=== PATIENT | female | born 1930 ===

== ENCOUNTER → 2018-12-08 | Outpatient (CLI) | payer OTHER | LOC: LAB SHORT 07:47 → PLD 07:47 | DX: D48.5 Neoplasm of uncertain behavior of skin (principal); L82.1 Other seborrheic keratosis | CPT/HCPCS: 88305 ==

== ENCOUNTER 2021-06-09 00:27 | Day surgery (SDC) | payer OTHER | END 2021-06-09 23:21 | disposition home or self-care (01) | LOC: WOUND 00:27 | DX: L89.313 Pressure ulcer of right buttock, stage 3 (principal); L89.322 Pressure ulcer of left buttock, stage 2; G90.09 Other idiopathic peripheral autonomic neuropathy; Z87.891 Personal history of nicotine dependence | CPT/HCPCS: A9270; G0463 ==

== ENCOUNTER 2021-06-16 03:06 | Day surgery (SDC) | payer OTHER | END 2021-06-16 23:25 | disposition home or self-care (01) | LOC: WOUND 03:06 | DX: L89.312 Pressure ulcer of right buttock, stage 2 (principal); L89.322 Pressure ulcer of left buttock, stage 2 | CPT/HCPCS: G0463 ==

== ENCOUNTER 2021-06-23 01:01 | Day surgery (SDC) | payer OTHER | END 2021-06-23 23:00 | disposition home or self-care (01) | LOC: WOUND 01:01 | DX: L89.313 Pressure ulcer of right buttock, stage 3 (principal); L89.322 Pressure ulcer of left buttock, stage 2; G90.09 Other idiopathic peripheral autonomic neuropathy | CPT/HCPCS: A9270; G0463 ==

== ENCOUNTER 2021-07-07 00:25 | Day surgery (SDC) | payer OTHER | END 2021-07-07 23:00 | disposition home or self-care (01) | LOC: WOUND 00:25 | DX: L89.313 Pressure ulcer of right buttock, stage 3 (principal); L89.322 Pressure ulcer of left buttock, stage 2; G90.09 Other idiopathic peripheral autonomic neuropathy | CPT/HCPCS: A9270; G0463 ==

== ENCOUNTER 2021-07-21 01:11 | Day surgery (SDC) | payer OTHER | END 2021-07-21 23:29 | disposition home or self-care (01) | LOC: WOUND 01:11 | DX: L89.313 Pressure ulcer of right buttock, stage 3 (principal); G90.09 Other idiopathic peripheral autonomic neuropathy | CPT/HCPCS: A9270; G0463 ==

== ENCOUNTER 2021-08-04 03:32 | Day surgery (SDC) | payer OTHER | END 2021-08-04 23:22 | disposition home or self-care (01) | LOC: WOUND 03:32 | DX: Z09 Encounter for follow-up examination after completed treatment for conditions other than malignant neoplasm (principal); Z87.2 Personal history of diseases of the skin and subcutaneous tissue; G90.09 Other idiopathic peripheral autonomic neuropathy | CPT/HCPCS: G0463 ==

== ENCOUNTER → 2021-10-17 | Outpatient (CLI) | payer OTHER | END | disposition home or self-care (01) | LOC: LAB 14:00 → LAB SHORT 14:00 | PROVIDERS: Internal Medicine | DX: G89.4 Chronic pain syndrome (principal); Z79.899 Other long term (current) drug therapy | CPT/HCPCS: G0480 ==